=== PATIENT | male | born 1945 | race Caucasian/White ===

== ENCOUNTER → 2016-06-18 | Outpatient (CLI) | payer OTHER, BC ==
[2016-06-18 12:34] LABS: BASOPHILS # (AUTO) 0.02 10*3/UL; BASOPHILS % (AUTO) 0.3 % (0-1); EOSINOPHILS % (AUTO) 2.1 % (0-8); HEMATOCRIT 42.8 % (42.0-52.0); HEMOGLOBIN 15.1 g/dL (14.0-18.0); IMM GRAN % (AUTO) 0.1 % (0-5); IMM GRAN# (AUTO) 0.01 10*3/UL; LYMPHOCYTES # (AUTO) 2.59 10*3/uL; LYMPHOCYTES % (AUTO) 32.6 % (10-50); MEAN CORPUSCULAR HGB CONC 35.3 g/dL (33-37); MEAN PLATELET VOLUME 9.6 FL (7.4-12.2); MONOCYTES % (AUTO) 7.5 % (5-15); NEUTROPHILS # (AUTO) 4.56 10*3/UL; NEUTROPHILS % (AUTO) 57.4 % (50-80); RDW COEFFICIENT OF VARIATION 13.6 % (11.5-14.5); RED BLOOD COUNT 4.58 10^6/uL (4.70-6.10); WHITE BLOOD COUNT 7.95 10^3/uL (4.8-10.8)
[2016-06-18 12:39] LABS: PLATELET MORPHOLOGY COMMENT NORMAL MORPHOLOGY (NORM)
[2016-06-18 12:42] LABS: BILIRUBIN,URINE NEGATIVE (NEG); CLARITY,URINE CLEAR (CLEAR); GLUCOSE, URINE (UA) NEGATIVE (NEG); LEUKOCYTE ESTERASE ,URINE NEGATIVE (NEG); NITRATE,URINE NEGATIVE (NEG); OCCULT BLOOD,URINE NEGATIVE (NEG); PH,URINE 5.5 (5.0-8.5); PROTEIN,URINE NEGATIVE (NEG); UROBILINOGEN,URINE 0.2 mg/dL (0.2)
[2016-06-18 12:49] LABS: BACTERIA,URINE RARE; RBC,URINE 0-3 /hpf
[2016-06-18 13:06] LABS: URINE SAMPLE TYPE CLEAN CATCH URINE
[2016-06-18 13:23] LABS: ASPARTATE AMINO TRANSFERASE 43 IU/L (21-57); BILIRUBIN,TOTAL 1.4 mg/dL (0.3-1.2); BLOOD UREA NITROGEN 17 mg/dL (7-22); BUN/CREATININE RATIO 15.45 (6-20); CALCIUM 9.3 mg/dL (8.7-10.7); CHLORIDE 103 meq/L (98-112); CREATININE 1.1 mg/dL (0.70-1.50); EST GLOMERULAR FILTRATION > 60 (>60 ml/min/1.73m(2)); GLUCOSE 76 mg/dL (78-110); POTASSIUM 4.6 meq/L (3.8-5.2); SODIUM 138 meq/L (135-145); TOTAL PROTEIN 8.3 g/dL (6.1-8.0)
[2016-06-18 13:24] LABS: HDL CHOLESTEROL 51 mg/dL (40-150); TRIGLYCERIDES 123 mg/dL (44-200)
== END ==
LOC: MOB LAB 09:35
DX: I48.91 Unspecified atrial fibrillation (principal); R05 Cough; E55.9 Vitamin D deficiency, unspecified; E78.5 Hyperlipidemia, unspecified; M10.9 Gout, unspecified; Z12.5 Encounter for screening for malignant neoplasm of prostate; Z86.010 Personal history of colon polyps; Z79.01 Long term (current) use of anticoagulants
CPT/HCPCS: 36415; 80053; 80061; 81001; 82306; 84443; 84550; 85025; 99213; G0103; G0463

== ENCOUNTER → 2016-07-16 | Outpatient (CLI) | payer OTHER, BC | LOC: MMPC 09:00 | DX: Z79.01 Long term (current) use of anticoagulants (principal); Z51.81 Encounter for therapeutic drug level monitoring; I48.91 Unspecified atrial fibrillation | CPT/HCPCS: 85610 ==

== ENCOUNTER → 2016-09-21 | Outpatient (CLI) | payer OTHER, BC | LOC: MMPC 09:00 | DX: Z79.01 Long term (current) use of anticoagulants (principal); Z51.81 Encounter for therapeutic drug level monitoring; I48.91 Unspecified atrial fibrillation | CPT/HCPCS: 85610 ==

== ENCOUNTER → 2016-09-30 | Outpatient (CLI) | payer OTHER, BC | LOC: MMPC 11:11 | DX: I48.91 Unspecified atrial fibrillation (principal); M10.9 Gout, unspecified; R05 Cough; J40 Bronchitis, not specified as acute or chronic; Z86.010 Personal history of colon polyps | CPT/HCPCS: 99213; G0463 ==

== ENCOUNTER → 2016-10-06 | Outpatient (CLI) | payer OTHER, BC | LOC: MOB LAB 09:52 | PROVIDERS: ATTEND Physician Assistant | DX: M54.2 Cervicalgia (principal); J02.9 Acute pharyngitis, unspecified | CPT/HCPCS: 87880; 99214; G0463 ==

== ENCOUNTER → 2016-10-08 | Outpatient (CLI) | payer OTHER, BC | LOC: MMPC 09:00 | DX: Z79.01 Long term (current) use of anticoagulants (principal); Z51.81 Encounter for therapeutic drug level monitoring; I48.91 Unspecified atrial fibrillation | CPT/HCPCS: 85610 ==

== ENCOUNTER → 2016-10-26 | Outpatient (CLI) | payer OTHER, BC | LOC: MMPC 09:00 | DX: Z79.01 Long term (current) use of anticoagulants (principal); Z51.81 Encounter for therapeutic drug level monitoring; I48.91 Unspecified atrial fibrillation | CPT/HCPCS: 85610 ==

== ENCOUNTER → 2016-11-02 | Outpatient (CLI) | payer OTHER, BC | LOC: MMPC 09:00 | PROVIDERS: ATTEND Physician Assistant Medical | DX: S50.11XA Contusion of right forearm, initial encounter (principal) | CPT/HCPCS: 99213; G0463 ==

== ENCOUNTER → 2016-11-26 | Outpatient (CLI) | payer OTHER, BC | LOC: MMPC 09:00 | DX: Z79.01 Long term (current) use of anticoagulants (principal); Z51.81 Encounter for therapeutic drug level monitoring; I48.91 Unspecified atrial fibrillation | CPT/HCPCS: 85610 ==

== ENCOUNTER → 2016-12-21 | Outpatient (CLI) | payer OTHER, BC | LOC: MMPC 09:00 | DX: Z79.01 Long term (current) use of anticoagulants (principal); Z51.81 Encounter for therapeutic drug level monitoring; I48.91 Unspecified atrial fibrillation | CPT/HCPCS: 85610 ==

== ENCOUNTER → 2017-01-14 | Outpatient (CLI) | payer OTHER, BC | LOC: MMPC 09:00 | DX: Z79.01 Long term (current) use of anticoagulants (principal); Z51.81 Encounter for therapeutic drug level monitoring; I48.91 Unspecified atrial fibrillation | CPT/HCPCS: 85610 ==